=== PATIENT | male | born 1975 | race Caucasian/White ===

== ENCOUNTER 2022-07-07 09:40 | Emergency (ER) | payer OTHER, SELFPAY ==
[2022-07-07 09:41] VITALS: BP 172/124; PULSE 52; RESP 16; TEMP 36.2; O2SAT 99; BMI 28.6
--- NOTE | 2022-07-07 10:08 | EX.ED.DYSGE1 ---
HPI History of Present Illness Chief Complaint: Hypertension Informant: patient Onset/Context/Timing Onset: Yesterday Context: Gradual Onset Timing: Continuous Quality: Aching Location: Bilateral temporal area Worsened by: Nothing Relieved by: Tylenol Associated Symptoms Associated Symptoms: Headache Narrative Narrative: Patient presents with elevated blood pressures that began yesterday. Patient states he felt headache, none yesterday. Patient states that today he noted that his blood pressure was elevated at 185/100. Patient states he took his blood pressure medicines at home which includes atenolol and losartan. Patient states he rechecked his blood pressure approximately 1 hour later and it was even higher than what it was before. Patient states he has been compliant with his hypertensive medications. Patient admits to a headache. Patient states it is over the bilateral temporal areas. Patient states it improves with Tylenol. Denies any visual changes. Patient denies any chest pain or shortness of breath. Patient denies any other symptoms. [facility] Medical History (Updated 07/07/22 @ 12:[address] Cholo Atwood DO) Colon cancer Hypertension Home Medications aspirin 81 mg chewable tablet 81 mg PO DAILY 07/07/22 [History Last Taken Unknown] atenolol 50 mg tablet 50 mg PO BID 07/07/22 [History Last Taken Unknown] losartan 50 mg tablet 50 mg PO DAILY 07/07/22 [History Last Taken Unknown] Allergy/AdvReac Type Severity Reaction Status Date / Time Penicillins Allergy Hives Verified 07/07/22 09:44 Sulfa (Sulfonamide Allergy Hives Verified 07/07/22 09:44 Antibiotics) Surgical History History of colon resection History of colostomy reversal Social History Smoking Status: Never smoker ROS ROS ED Constitutional Constitutional ED: Denies chills or fever(s) Eyes Eyes: Denies blurry vision or change in vision ENT ENT ED: Denies rhinorrhea or sore throat Cardiovascular Cardiovascular: Denies chest pain or palpitations Respiratory/Chest Respiratory/Chest: Denies cough or dyspnea Gastrointestinal Gastrointestinal: Denies nausea or vomiting Genitourinary Genitourinary ED: Denies dysuria or hematuria Musculoskeletal Musculoskeletal: Denies back pain or neck pain Integumentary Denies abscess or rash Neurologic Neurologic: Reports headache(s); Denies weakness Allergic/Immunologic Allergic/Immunologic ED: Denies mouth swelling or urticaria EXAM Physical Exam Const Vital Signs: 07/07/22 09:41 07/07/22 10:16 07/07/22 10:16 Temperature 97.2 F L Temperature Source Temporal Pulse Rate 52 L 54 L Respiratory Rate 16 16 Respiratory Effort Normal Non-Labored Respiratory Pattern Normal Blood Pressure 172/124 H 190/106 H Blood Pressure Mean 140 134 Pulse Ox 99 Oxygen Delivery Method Room Air 07/07/22 12:00 Temperature Temperature Source Pulse Rate 62 Respiratory Rate 18 Respiratory Effort Respiratory Pattern Blood Pressure 181/102 H Blood Pressure Mean 128 Pulse Ox 97 Oxygen Delivery Method Room Air Positive well nourished and well developed General Appearance ED: well developed and NAD HEENT Reports moist mucous membranes Neck supple and no JVD Resp normal respiratory effort and clear to auscultation bilaterally Cardio regular rate, regular rhythm and no murmurs GI normal to inspection, nondistended, normoactive bowel sounds and non-tender Palpation: soft Extremity normal to inspection General Extremety ED: Yes edema; Negative for tenderness General Extremity: edema bilateral lower extremity Details: trace (Nonpitting) Neuro oriented x3, CN's II-XII intact bilaterally and no sensory deficits noted Sensorium / Orientation: alert Motor Exam: strength 5/5 throughout Psych mental status grossly normal Skin no rashes or lesions noted MDM MDM MDM Narrative Medical decision making narrative: Differential diagnosis includes hypertension, cardiac dysrhythmia, cardiac ischemia, acute kidney injury, and electrolyte abnormality. Chest x-ray will be obtained to assess for widening of the mediastinum. EKG will be obtained to assess for cardiac dysrhythmia and cardiac ischemia. CBC will be obtained to assess for leukocytosis and anemia. Basic metabolic profile will be obtained to assess for renal function and electrolyte abnormality. High-sensitivity troponin will be obtained to assess for cardiac ischemia. Lab Data Attestation: I reviewed the patient's lab results. Lab results narrative: CBC was reviewed and was within normal limits. Basic metabolic profile was reviewed and was essentially within normal limits. High-sensitivity troponin was reviewed and was normal. Labs: Laboratory Results - last 24 hr 07/07/22 07/07/22 10:21 10:21 WBC 6.9 RBC 4.40 L Hgb 14.9 Hct 44.3 MCV 100.7 H MCH 33.9 H MCHC 33.6 RDW Std Deviation 45.0 H RDW Coeff of Sabrina 11.9 Plt Count 199 MPV 10.8 Immature Gran % (Auto) 0.400 Neut % (Auto) 61.8 Lymph % (Auto) 28.4 [place] % (Auto) 7.5 Eos % (Auto) 1.3 Baso % (Auto) 0.6 Absolute Neuts (auto) 4.3 Absolute Lymphs (auto) 1.96 Nucleated RBC % 0 Sodium 143 Potassium 3.9 Chloride 110 H Carbon Dioxide 29.0 Anion Gap 4 L BUN 14 Creatinine 0.89 Estim Creat Clear Calc 104.81 Est GFR (MDRD) Af Amer 117 Est GFR (MDRD) Non-Af 97 BUN/Creatinine Ratio 15.7 Glucose 94 Calcium 9.3 Troponin I High Sens 5 Radiography Diagnostic Testing: Clinical Impression(s) from Imaging Studies Chest X-Ray 07/07/22 10:48 IMPRESSION: No acute abnormality is seen. Electronically Signed: Rl Kendrick MD at 11:09 EDT , PA and lateral chest x-ray was obtained. There are 2 views. On my independent interpretation, lung sweeney are clear. There is normal cardiac silhouette. Bony thorax is normal. There is no acute process noted. Radiologist also interpreted the x-ray and agrees. EKG Initial EKG: Attestation: I personally reviewed and interpreted this EKG as follows: Interpretation: No Acute Injury Pattern and Sinus Bradycardia (51) Comments: EKG was obtained. On my independent interpretation, it showed a sinus bradycardia with a rate of 51. ID interval, QRS interval, and QTc intervals were all normal. Randall was normal. There are no acute ST or T wave changes. Prior EKG tracings: not available for review Prior: No Prior Treatment and Re-Evaluation :: Patient was given a dose of labetalol here. Patient had no improvement of his blood pressure with this. Patient was given a dose of hydralazine. Patient's blood pressure improved to 168/95 on reevaluation. Patient feels better on reevaluation. Patient was advised of his findings. Patient was instructed to follow-up with his primary care physician in 5 to 7 days. Patient was instructed to continue to monitor his blood pressures in the meantime. Patient was advised to take an extra losartan if his blood pressure was over 160/100. Patient was instructed return if worse in any way. Patient understood and was agreeable with the plan. All questions were answered. Discharge Plan Triage Chief Complaint: Hypertension ED Provider: Cholo Atwood Dx/Rx/DC Orders Clinical Impression: Hypertension, History of colon cancer Instructions: ED Hypertension, Established Prescriptions: No Action losartan 50 mg Tablet 50 mg PO DAILY aspirin 81 mg Tablet,Chewable 81 mg PO DAILY atenolol 50 mg Tablet 50 mg PO BID Primary Care Provider: JENNIFER ELIZABETH Referrals: JENNIFER ELIZABETH [Other] - 5-7 Days Activity Restrictions/Additional Instructions: Continue to monitor your blood pressures daily. If your blood pressure is elevated over 160/100, you may take 1 extra dose of losartan. Disposition Disposition: Home, Self Care
[2022-07-07 10:16] VITALS: BP 190/106; PULSE 54; RESP 16
--- NOTE | 2022-07-07 10:18 | NURSING ---
NO OLD EKGS
[2022-07-07 10:29] LABS: Absolute Lymphocyte Count 1.96 X10^3/uL (0.83-4.51); Absolute Neutrophil Count 4.3 X10^3/uL (2.0-7.7); Basophil# 0.04 X10^3/uL; Basophil% 0.6 % (0-1); Eosinophil# 0.09 X10^3/uL; Eosinophils% 1.3 % (0-5); Hematocrit 44.3 % (40-54); Hemoglobin 14.9 g/dL (13.0-16.5); Lymphocyte # 1.96 X10^3/ul (0.83-4.51); Lymphocyte % 28.4 % (19-41); Mean Corp Hgb Conc 33.6 g/dL (32-36); Mean Corpuscular Hgb 33.9 pg (27.0-32.0); Mean Corpuscular Volume 100.7 fL (80-94); Mean Platelet Vol. 10.8 fl (6.2-12.0); Monocyte# 0.52 X10^3/uL; Monocyte% 7.5 % (0-10); NRBC Flagged by Analyzer 0 % (0-5); Neutrophil # 4.27 X10^3/uL (2.7-7.7); Neutrophil % 61.8 % (47-70); Platelet Count 199 K/mm3 (150-450); RBC Distribution Width CV 11.9 % (11.6-14.6); White Blood Count 6.9 K/mm3 (4.4-11.0)
[2022-07-07 10:47] LABS: Anion Gap 4 (5-15); BUN 14 mg/dL (7-18); BUN/Creat Ratio 15.7 RATIO (10-20); Calcium,Total 9.3 mg/dL (8.5-10.1); Chloride 110 mmol/L (98-107); Creatinine, Serum 0.89 mg/dL (0.70-1.30); EST Glomerular Filtration Rate 97 mL/min (>60); Est Glom Filt Rate - Afr Amer 117 mL/min (>60); Estimated Creatinine Clearance 104.81 ml/min; Glucose 94 mg/dL (74-106); Potassium 3.9 mmol/L (3.5-5.1); Sodium Level 143 mmol/L (136-145); Troponin-I HS 5 pg/mL (3.0-78.0)
--- NOTE | 2022-07-07 10:48 | RAD_ITS ---
STUDY: X-RAY CHEST REASON FOR EXAM: Male, 46 years old. Hypertension TECHNIQUE: PA and lateral views of the chest. COMPARISON: None. FINDINGS: EKG electrodes are seen. The lungs are clear and expanded. There is no demonstrated pleural abnormality. Normal size heart. Normal mediastinum and romaine. Normal visualized pulmonary arteries. Normal visualized aortic arch and descending thoracic aorta. There are diffuse degenerative changes of the visualized thoracic spine. Normal visualized ribs, clavicles, and shoulders. There is no demonstrated abnormality of the visualized soft tissue structures of the upper abdomen. RAD/Chest PA and Lateral IMPRESSION: No acute abnormality is seen. Electronically Signed: Rl Kendrick MD at 11:09 EDT ,
[2022-07-07] MEDS: Labetalol (Prefilled) 20 MG/4 ML 10 MG IV (11:02)
--- NOTE | 2022-07-07 11:38 | CM.ED ---
Social Work SW met with patient and introduced self and role. Discussed Advanced Directives with patient. Patient reports he has Living Will and HCPOA paperwork at his local hospital as he resides in [place]. Pt reports he can bring them if he returns to this hospital in the future. Dominga Huber REEL SYSTEM OPERATOR, SENIOR CHEMICAL ENGINEER
[2022-07-07 12:00] VITALS: BP 181/102; PULSE 62; RESP 18; O2SAT 97
[2022-07-07] MEDS: hydrALAZINE 20 MG/ML Vial 5 MG IV (12:20)
[2022-07-07 13:11] VITALS: BP 179/94; PULSE 60; RESP 16
== END 2022-07-07 13:13 | disposition home or self-care (01) ==
PROVIDERS: Emergency Provider Emergency Medicine; Visit Provider Emergency Medicine
DX: I10 Essential (primary) hypertension (principal); R51.9 Headache, unspecified; Z79.82 Long term (current) use of aspirin; Z79.899 Other long term (current) drug therapy; Z85.038 Personal history of other malignant neoplasm of large intestine
CPT/HCPCS: 71046; 80048; 84484; 85025; 93005; 96374; 96375; 99285; A4216